=== PATIENT | male | born 1980 | race African-American/Black ===

== ENCOUNTER 2024-11-28 16:13 | Inpatient (IN) | payer BC, MEDICAID ==
[~2024-11-28] VITALS: Ht 185.4 cm; Wt 123.5 kg
[2024-11-28 16:57] LABS: BASOPHILS % 1.0 % (0.0-2.0); EOSINOPHILS % 1.5 % (0.0-5.0); HEMATOCRIT. 43.3 % (42.0-52.0); HEMOGLOBIN. 14.2 g/dL (14.0-18.0); LYMPHOCYTES % 15.3 % (20.0-50.0); MEAN PLATELET VOLUME 9.4 fl (7.4-10.4); MONOCYTES % 8.6 % (2.0-8.0); NEUTROPHILS % 73.6 % (40.0-76.0); PLATELET 346 x1000/uL (130-400); RED BLOOD CELL COUNT 5.32 mill/uL (4.7-6.1); RED CELL DISTRIBUTION WIDTH 14.5 % (11.6-14.6)
[2024-11-28 17:10] LABS: CREATININE 1.0 mg/dL (0.6-1.3); INR 1.2; TROPONIN I HIGH SENSITIVITY 36 ng/L (3.0-53); UREA NITROGEN BLOOD 14 mg/dL (9-23)
[2024-11-28 17:12] LABS: ASPARTATE AMINOTRANSFERASE 35 IU/L (<34); BILIRUBIN DIRECT 0.3 mg/dL (<=3.0); BILIRUBIN TOTAL 1.0 mg/dL (0.1-1.0); PROTEIN TOTAL 6.3 g/dL (6.0-8.3)
[2024-11-28] MEDS: FUROSEMIDE 40MG/4ML VIAL IVP ONE (21:14)
[2024-11-28] MEDS: CEFTRIAXONE 1GM/50ML 50 ML IV ONE (21:14)
[2024-11-28] MEDS ORDERED: ACETAMINOPHEN 325MG TABLET PO PRN (21:30)
[2024-11-28] MEDS ORDERED: MAGNESIUM/ALUMINUM HYDROXIDE/SIMETHICONE 30ML UDC PO PRN (21:30)
[2024-11-28] MEDS ORDERED: DOCUSATE SODIUM 100MG CAPSULE PO PRN (21:30)
[2024-11-28] MEDS ORDERED: GUAIFENESIN 200MG/10ML SUGAR FREE UDC PO PRN (21:30)
[2024-11-28] MEDS ORDERED: DIPHENHYDRAMINE 50MG/ML VIAL IV PRN (21:30)
[2024-11-28] MEDS ORDERED: ONDANSETRON HCL 4MG/2ML INJ IV PRN (21:30)
[2024-11-28 22:00] VITALS: BP 107/79; PULSE 108; RESP 18; TEMP 36.5848
[2024-11-29] VITALS (7 sets, daily range): BP systolic 100–127; BP diastolic 67–101; PULSE 86–104; RESP 16–20; TEMP 35.6–36.4; O2SAT 95–98
[2024-11-29] MEDS: DOXYCYCLINE 100MG/100ML 100 ML IV SCH ×2 (00:17→08:58)
[2024-11-29] MEDS ORDERED: PROT20 PO (02:01)
[2024-11-29] MEDS ORDERED: AMLO-337 MT (02:01)
[2024-11-29] MEDS ORDERED: ALBU05 NEB (02:01)
[2024-11-29] MEDS ORDERED: METF-1150 MT (02:01)
[2024-11-29 06:54] LABS: BASOPHILS % 0.5 % (0.0-2.0); EOSINOPHILS % 2.2 % (0.0-5.0); HEMATOCRIT. 43.1 % (42.0-52.0); HEMOGLOBIN. 14.1 g/dL (14.0-18.0); LYMPHOCYTES % 19.4 % (20.0-50.0); MEAN PLATELET VOLUME 8.8 fl (7.4-10.4); MONOCYTES % 9.2 % (2.0-8.0); NEUTROPHILS % 68.7 % (40.0-76.0); PLATELET 310 x1000/uL (130-400); RED BLOOD CELL COUNT 5.28 mill/uL (4.7-6.1); RED CELL DISTRIBUTION WIDTH 14.8 % (11.6-14.6)
[2024-11-29 07:11] LABS: TROPONIN I HIGH SENSITIVITY 31 ng/L (3.0-53)
[2024-11-29 07:16] LABS: CREATININE 1.0 mg/dL (0.6-1.3); LDL CHOLESTEROL 85 mg/dL (5-100); T4 FREE 1.24 ng/dL (0.89-1.76); TRIGLYCERIDE 73 mg/dL (0-150); UREA NITROGEN BLOOD 13 mg/dL (9-23)
[2024-11-29] MEDS: FUROSEMIDE 40MG/4ML VIAL IV SCH (08:58)
[2024-11-29] MEDS ORDERED: DEXTROSE 50% WATER 50ML SYRINGE IV PRN (09:45)
[2024-11-29] MEDS: BLOOD SUGAR DIAGNOSTIC STRIP TEST SCH (11:42)
[2024-11-29] MEDS: INSULIN LISPRO 100 UNITS/ML SUBCUT SCH (12:18)
[2024-11-29] MEDS ORDERED: DOXYCYCLINE HYCLATE 100 MG/VIAL IV SCH (13:00)
[2024-11-29] MEDS: ACETAMINOPHEN 325MG TABLET PO PRN (14:25)
[2024-11-29] MEDS: CEFTRIAXONE 1GM/50ML 50 ML IV SCH (21:18)
[2024-11-29] MEDS ORDERED: CEFTRIAXONE 1GM/50ML 50 ML IV SCH (21:45)
[2024-11-30] VITALS (9 sets, daily range): BP systolic 102–116; BP diastolic 71–90; PULSE 59–114; RESP 18–20; TEMP 35.6–37.2; O2SAT 94–100
[2024-11-30] MEDS: MELATONIN 3MG TABLET PO NR (00:04)
[2024-11-30] MEDS: AMLODIPINE 5MG TABLET PO SCH (08:30)
[2024-11-30 09:57] LABS: BASOPHILS % 0.3 % (0.0-2.0); EOSINOPHILS % 2.4 % (0.0-5.0); HEMATOCRIT. 42.1 % (42.0-52.0); HEMOGLOBIN. 13.9 g/dL (14.0-18.0); LYMPHOCYTES % 18.2 % (20.0-50.0); MEAN PLATELET VOLUME 9.2 fl (7.4-10.4); MONOCYTES % 8.7 % (2.0-8.0); NEUTROPHILS % 70.4 % (40.0-76.0); PLATELET 272 x1000/uL (130-400); RED BLOOD CELL COUNT 5.17 mill/uL (4.7-6.1); RED CELL DISTRIBUTION WIDTH 14.5 % (11.6-14.6)
[2024-11-30 10:10] LABS: CREATININE 1.0 mg/dL (0.6-1.3); UREA NITROGEN BLOOD 14 mg/dL (9-23)
[2024-11-30] MEDS: IPRATROPIUM/ALBUTEROL 0.5-3(2.5)MG/3ML NEB HHN SCH (13:03)
[2024-11-30] MEDS: LOSARTAN 25 MG TABLET PO SCH (14:45)
[2024-11-30] MEDS: SPIRONOLACTONE 12.5MG TABLET PO SCH (16:55)
[2024-11-30] MEDS: EMPAGLIFLOZIN 10MG TABLET PO SCH (16:55)
[2024-11-30] MEDS: IPRATROPIUM/ALBUTEROL 0.5-3(2.5)MG/3ML NEB HHN PRN (17:19)
[2024-11-30] MEDS: FUROSEMIDE 40MG/4ML VIAL IV SCH (18:19)
[2024-11-30] MEDS ORDERED: CEFTRIAXONE 1GM/50ML 50 ML IV SCH (20:00)
[2024-11-30] MEDS ORDERED: CARVEDILOL 3.125 MG TABLET PO SCH (21:00)
[2024-12-01] VITALS (9 sets, daily range): BP systolic 103–137; BP diastolic 74–87; PULSE 52–117; RESP 16–24; TEMP 36.5–36.8; O2SAT 95–99
[2024-12-01] MEDS: ZOLPIDEM TARTRATE 5MG TABLET PO PRN (00:03)
[2024-12-01 08:29] LABS: BASOPHILS % 0.7 % (0.0-2.0); EOSINOPHILS % 3.1 % (0.0-5.0); HEMATOCRIT. 42.0 % (42.0-52.0); HEMOGLOBIN. 13.6 g/dL (14.0-18.0); LYMPHOCYTES % 21.7 % (20.0-50.0); MEAN PLATELET VOLUME 9.1 fl (7.4-10.4); MONOCYTES % 8.5 % (2.0-8.0); NEUTROPHILS % 66.0 % (40.0-76.0); PLATELET 308 x1000/uL (130-400); RED BLOOD CELL COUNT 5.16 mill/uL (4.7-6.1); RED CELL DISTRIBUTION WIDTH 14.8 % (11.6-14.6)
[2024-12-01 08:50] LABS: CREATININE 1.0 mg/dL (0.6-1.3)
[2024-12-01 08:51] LABS: UREA NITROGEN BLOOD 15 mg/dL (9-23)
[2024-12-01 08:53] LABS: PHOSPHORUS 3.8 mg/dL (2.5-4.9)
[2024-12-01] MEDS: CARVEDILOL 3.125 MG TABLET PO SCH (21:31)
[2024-12-02] VITALS (10 sets, daily range): BP systolic 101–112; BP diastolic 61–85; PULSE 75–109; RESP 16–24; TEMP 36.3–36.9; O2SAT 94–100
[2024-12-02] MEDS: SPIRONOLACTONE 12.5MG TABLET PO SCH (09:00)
[2024-12-02 09:04] LABS: BASOPHILS % 1.0 % (0.0-2.0); EOSINOPHILS % 3.4 % (0.0-5.0); HEMATOCRIT. 40.8 % (42.0-52.0); HEMOGLOBIN. 13.4 g/dL (14.0-18.0); LYMPHOCYTES % 23.4 % (20.0-50.0); MEAN PLATELET VOLUME 9.0 fl (7.4-10.4); MONOCYTES % 7.8 % (2.0-8.0); NEUTROPHILS % 64.4 % (40.0-76.0); PLATELET 278 x1000/uL (130-400); RED BLOOD CELL COUNT 5.03 mill/uL (4.7-6.1); RED CELL DISTRIBUTION WIDTH 14.4 % (11.6-14.6)
[2024-12-02 09:11] LABS: INR 1.1
[2024-12-02 09:13] LABS: CREATININE 1.0 mg/dL (0.6-1.3)
[2024-12-02 09:14] LABS: UREA NITROGEN BLOOD 13 mg/dL (9-23)
[2024-12-02 09:15] LABS: LACTATE DEHYDROGENASE 258 IU/L (120-246)
[2024-12-02 12:21] LABS: PROTEIN BODY FLUID 2.8 gm/dL
[2024-12-02 14:41] LABS: BODY FLUID WBC 290 /cu mm (0-200)
[2024-12-02 14:42] LABS: BODY FLUID MONOCYTES 5 %; BODY FLUID RBC 257 /cu mm (0-2000)
[2024-12-02 16:53] LABS: BG BASE EXCESS -3.0 mmol/L (-2.0-3.0); BG CARBOXYHEMOGLOBIN 1.3 % (0.5-1.5); BG DEOXYHEMOGLOBIN 10.1 % (0.0-5.0); BG FRACTION INSPIRED OXYGEN 21; BG HCO3 ACT 21.9 mmol/L (21.0-28.0); BG METHEMOGLOBIN 0.0 % (0.5-1.5); BG OXYGEN SATURATION 89.8 % (94.0-98.0); BG OXYHEMOGLOBIN 88.6 % (94.0-98.0); BG PCO2 39.2 mmHg (35.0-48.0); BG PH 7.366 (7.350-7.450); BG PO2 58.9 mmHg (83.0-108.0); BG SAMPLE SITE LEFT RADIAL; BG TOTAL HEMOGLOBIN 15.6 g/dL (13.5-17.5); BG VENT MODE ROOM AIR
[2024-12-02] MEDS: SACUBITRIL/VALSARTAN 24MG/26MG TABLET PO SCH (21:55)
[2024-12-03] VITALS (7 sets, daily range): BP systolic 106–119; BP diastolic 73–101; PULSE 101–107; RESP 18–22; TEMP 36.4–36.7; O2SAT 98–99
[2024-12-03 07:34] LABS: PLATELET 269 x1000/uL (130-400); RED BLOOD CELL COUNT 5.14 mill/uL (4.7-6.1); RED CELL DISTRIBUTION WIDTH 14.3 % (11.6-14.6)
[2024-12-03 07:45] LABS: CREATININE 0.9 mg/dL (0.6-1.3)
[2024-12-03 07:46] LABS: UREA NITROGEN BLOOD 13 mg/dL (9-23)
[2024-12-03] MEDS: SPIRONOLACTONE 25MG TABLET PO SCH (10:14)
[2024-12-03] MEDS ORDERED: SPIR25TA PO (13:27)
[2024-12-03] MEDS ORDERED: FURO-151 MT (13:27)
[2024-12-03] MEDS ORDERED: EMPA10TA PO (13:27)
[2024-12-03] MEDS ORDERED: SACU1TAB PO (13:27)
[2024-12-03] MEDS ORDERED: COR3 PO (13:27)
== END 2024-12-03 16:24 | disposition home or self-care (01) | DRG 291 ==
LOC: ER 16:13 → 7WST 20:15 → EDBEDREQTM 20:30 → EDBEDREQ 20:30 → ENRESERV 21:28
PROVIDERS: ADMIT Hospitalist; ATTEND Hospitalist
PROC: 0W993ZZ Drainage of Right Pleural Cavity, Percutaneous Approach (ICD-10-PCS; principal; 2024-12-02)
DX: I11.0 Hypertensive heart disease with heart failure (principal); I50.21 Acute systolic (congestive) heart failure; J96.01 Acute respiratory failure with hypoxia; J18.9 Pneumonia, unspecified organism; R65.10 Systemic inflammatory response syndrome (SIRS) of non-infectious origin without acute organ dysfunction; J91.8 Pleural effusion in other conditions classified elsewhere; I49.3 Ventricular premature depolarization; E11.65 Type 2 diabetes mellitus with hyperglycemia; I34.0 Nonrheumatic mitral (valve) insufficiency; Z68.35 Body mass index [BMI] 35.0-35.9, adult; I42.0 Dilated cardiomyopathy; F90.9 Attention-deficit hyperactivity disorder, unspecified type; E66.9 Obesity, unspecified; Z79.4 Long term (current) use of insulin; Z79.84 Long term (current) use of oral hypoglycemic drugs; Z79.899 Other long term (current) drug therapy; Z82.41 Family history of sudden cardiac death; Z82.49 Family history of ischemic heart disease and other diseases of the circulatory system; Z87.01 Personal history of pneumonia (recurrent)
CPT/HCPCS: 32555; 36415; 36600; 71045; 71250; 80048; 80061; 80076; 82040; 82375; 82805; 82962; 82977; 83036; 83605; 83615; 83735; 83880; 84100; 84145; 84439; 84443; 84484; 85025; 85027; 85651; 93005; 93306; 93970; 94070; 94640; 94664; 94760; 99291; J0696; J1815; J1938; J3490